=== PATIENT | female | born 1980 | race Caucasian/White ===

== ENCOUNTER 2017-11-24 08:06 | Emergency (ER) | payer OTHER ==
[~2017-11-24] VITALS: Ht 162.6 cm; Wt 98.9 kg
[~2017-11-24 08:06] MED LIST: ACEDIPPM; ACET500 PO; ALBU90OI INH; ALBU90OI6 INH; ALPR1; ALPR1 PO; AMOCLA875 PO; AMOX500; AMOX500 PO; AMOX875 PO; ATOR10 PO; AZIT250 PO; BENTYL10 MG PO; BENZ100A PO; BUPR150ER; BUSP10 PO; BUSP5; Bactrim 400-801 EACH PO; Bactrim Ds Tab1 EACH PO; Bupropion Xl150 MG PO; CEPH500 PO; CETI5 PO; CIPR100 PO; CIPR500 PO; CIPRO500 MG PO; CLON1; CLON1 PO; CODACE30; CODACE30 PO; CRUTCH2 USE; CRUTCH3 USE; CRUTCH4 USE; CYCL10 PO; DIAZ10; DIAZ10 PO; DIAZ2 PO; DIAZ5; DIAZ5 PO; DICL75ER; DIPH50 PO; DIVA125EC; DIVA500EC; DOXE10 PO; DOXY100; DULO30 PO; DULO60; DULO60 PO; ESCI10; ESCI20; ESTR2 PO; Excedrin Extra1 EACH PO; FENT50TP; FLUSAL1005 IH; FLUSAL1005 INH; FLUSAL2505; FLUT.05NI; FORFIVO XL450 MG; FORFIVO XL450 MG PO; FURO20; FURO20 PO; Flagyl500 MG PO; GABA800 PO; HYDACE5; HYDACE5 PO; HYDMOR2; HYDMOR4 PO; IBUP400; IBUP400 PO; IBUP800 PO; LAMO100 PO; LAMO25 PO; LAMO50 PO; LEVSOD150 PO; LIOT5 PO; LITH300C PO; LORA.5; LORA1 PO; LORA2; LORA2 PO; MEDICAL MARIJUANA; MELA3; META800 PO; METF500; METH40; METO25ER PO; METPHE20 PO; METPHE20CR PO; MODA200 PO; MULVITA; MULVITMINE; Mucinex1200 MG PO; NAPR375 PO; NAPR500 PO; NAPR550 PO; Nasonex17 GM; Norco 5-325 Ta1 EACH PO; OMEP20ER PO; OXYACE5T; OXYACE5T PO; OXYC10TA19 PO; OXYC15ER PO; OXYC30 PO; OXYC30ER PO; OXYC5 PO; PANT40 PO; PENVK500 PO; PHENA200 PO; PRAZ1; PRAZ1 PO; PRAZ2 PO; PRED20 PO; PREG200 PO; PROACE100 PO; PROCODE120 PO; PROM25; PROM25 PO; PSEU120ER PO; Prilosec20 MG PO; QUET100; QUET200 PO; RANI150 PO; RXCYCL10 PO; RXHYDACE PO; RXLORA1 PO; RXOXYACE PO; RXPHEN200 PO; RXPROACE PO; SERT100 PO; SUCR1 PO; SULTRIDS PO; SYNTHROID25 MCG PO; THYROLAR PO; TIOT18; TOPI100 PO; TOPI25 PO; TRAM50 PO; TRAZ100; TRAZ50; UNISOM; Ultram50 MG PO; VENL75ER; Veetids 500500 MG PO; Zantac150 MG PO; Zofran8 MG PO; [UNRECOGNIZED DRUG - REMARK]
[2017-11-24] MEDS ORDERED: Ultram50 MG PO (10:25)
== END 2017-11-24 10:45 | disposition home or self-care (01) ==
LOC: ER 08:06
DX: S83.92XA Sprain of unspecified site of left knee, initial encounter (principal); S83.91XA Sprain of unspecified site of right knee, initial encounter; Z87.891 Personal history of nicotine dependence; Z88.8 Allergy status to other drugs, medicaments and biological substances; Z79.899 Other long term (current) drug therapy; X58.XXXA Exposure to other specified factors, initial encounter; Y93.02 Activity, running; Y93.64 Activity, baseball
CPT/HCPCS: 29505; 73562-RT; 99283-25

== ENCOUNTER 2019-02-15 09:19 | Emergency (ER) | payer OTHER ==
[~2019-02-15] VITALS: Ht 162.6 cm; Wt 101.2 kg
[2019-02-15 10:21] LABS: BASOPHILS ABSOLUTE AUTO 0.04 K/mm3 (0.00-0.23); BASOPHILS PERCENT AUTO 1 % (0-2); EOSINOPHILS ABSOLUTE AUTO 0.76 K/mm3 (0.00-0.68); EOSINOPHILS PERCENT AUTO 11 % (0-6); Hematocrit 37.9 % (33.0-51.0); Hemoglobin 12.2 g/dL (11.5-16.0); IMMATURE GRAN ABSOLUTE AUTO 0.02 K/mm3 (0.00-0.10); IMMATURE GRAN PERCENT AUTO 0 % (0-1); LYMPHOCYTES ABSOLUTE AUTO 2.33 K/mm3 (0.84-5.20); LYMPHOCYTES PERCENT AUTO 32 % (21-46); MONOCYTES ABSOLUTE AUTO 0.59 K/mm3 (0.16-1.47); MONOCYTES PERCENT AUTO 8 % (4-13); Mean Corpuscular HGB Conc 32.2 g/dL (31.5-36.5); Mean Corpuscular Volume 93 fL (80-100); Mean Platelet Volume 9.4 fL (9.1-12.4); NEUTROPHILS ABSOLUTE AUTO 3.47 K/mm3 (1.96-9.15); NEUTROPHILS PERCENT AUTO 48 % (41-73); Platelet Count 303 K/mm3 (150-400); RDW Coefficient Variation 14.3 % (11.7-14.2); RDW Standard Deviation 49.2 fL (35.1-46.3); Red Blood Cell Count 4.07 M/mm3 (3.80-5.20); White Blood Cell Count 7.21 K/mm3 (4.00-11.30)
[2019-02-15 10:45] LABS: Source, Urine Clean Catch
[2019-02-15 10:47] LABS: Alanine Aminotransfer (ALT/SGP 22 U/L (12-78); Albumin, Blood 3.5 g/dL (3.4-5.0); Albumin/Globulin Ratio 1.1 (0.8-1.8); Alk Phos 59 U/L (50-136); Anion Gap 7 mmol/L (6-16); Aspartate Aminotrans (AST/SGOT 18 U/L (12-37); Bilirubin, Total 0.2 mg/dL (0.1-1.0); Blood Urea Nitrogen 17 mg/dL (8-24); Bun/Creatinine Ratio 17.4 (12.0-20.0); CO2, Blood 22 mmol/L (21-32); Calcium, Blood 8.5 mg/dL (8.5-10.1); Chloride, Blood 114 mmol/L (98-108); Creatinine, Blood 0.98 mg/dL (0.40-1.00); Globulin, Blood 3.3 g/dL (2.2-4.0); Glomerular Filtration Rate >60 (60-); Glucose, Blood 115 mg/dL (70-99); Potassium, Blood 3.7 mmol/L (3.5-5.5); Sodium, Blood 143 mmol/L (136-145); Total Protein, Blood 6.8 g/dL (6.4-8.2)
[2019-02-15 10:52] LABS: Bilirubin, Urine Neg (Neg); Blood, Urine Neg (Neg); Glucose Qualitative, Urine Neg (Neg); Ketones, Urine Neg (Neg); Leukocyte Esterase, Urine 1+ (Neg); Nitrite, Urine Neg (Neg); Protein, Urine Neg (Neg); Specific Gravity, Urine 1.025 (1.003-1.022); Urobilinogen, Urine NORM (Normal)
[2019-02-15 11:05] LABS: Appearance, Urine Clear (Clear); Color, Urine Yellow (P-Yellow)
[2019-02-15 11:07] LABS: Bacteria Few /hpf; Red Blood Cells, Urine Not Seen /hpf (0-2); Squamous Epithelial Cells Mod /hpf (Few); White Blood Cells, Urine 0-2 /hpf (0-5)
[2019-02-15] MEDS ORDERED: Miralax17 GM PO (15:35)
[2019-02-15] MEDS ORDERED: BELPTAB PO (15:36)
== END 2019-02-15 15:46 | disposition home or self-care (01) ==
LOC: ER 09:19
PROVIDERS: Emergency Medicine
DX: K92.1 Melena (principal); Z87.891 Personal history of nicotine dependence; Z88.5 Allergy status to narcotic agent; Z88.8 Allergy status to other drugs, medicaments and biological substances; Z79.899 Other long term (current) drug therapy; Z79.891 Long term (current) use of opiate analgesic
CPT/HCPCS: 36415; 74177; 80053; 81001; 83690; 85025; 87086; 96361; 96372-59; 96374-59; 99284-25; J0500; J1885; J7120; Q9967

== ENCOUNTER 2019-06-12 09:37 | Emergency (ER) | payer OTHER ==
[~2019-06-12] VITALS: Ht 162.6 cm; Wt 100.7 kg
[~2019-06-12 09:37] MED LIST changes: +BELPTAB PO; +Miralax17 GM PO
[2019-06-12] MEDS ORDERED: AMOC200S75 PO (10:06)
[2019-06-12] MEDS ORDERED: Flonase 0.05% N16 GM (10:06)
[2019-06-12 10:26] LABS: Source, Urine Clean Catch
[2019-06-12 10:34] LABS: Bilirubin, Urine Neg (Neg); Blood, Urine Neg (Neg); Glucose Qualitative, Urine Neg (Neg); Ketones, Urine Neg (Neg); Leukocyte Esterase, Urine Neg (Neg); Nitrite, Urine Neg (Neg); Protein, Urine Neg (Neg); Specific Gravity, Urine 1.015 (1.003-1.022); Urobilinogen, Urine NORM (Normal)
[2019-06-12 10:36] LABS: Appearance, Urine Clear (Clear); Color, Urine Yellow (P-Yellow)
[2019-06-12 10:46] LABS: U Amphetamine Screen Not Detected; U Barbituate Screen Not Detected; U Benzodiazapine Screen Not Detected; U Buprenorphine Screen Not Detected; U Cocaine Screen Not Detected; U Methadone Screen Not Detected; U Methamphetamine Screen Not Detected; U Opiates Screen Not Detected; U Oxycodone Screen Not Detected; U Phencyclidine Screen Not Detected; U Propoxyphene Screen Not Detected
[2019-06-12 11:06] LABS: BASOPHILS ABSOLUTE AUTO 0.06 K/mm3 (0.00-0.23); BASOPHILS PERCENT AUTO 1 % (0-2); EOSINOPHILS ABSOLUTE AUTO 0.52 K/mm3 (0.00-0.68); EOSINOPHILS PERCENT AUTO 9 % (0-6); Hematocrit 39.5 % (33.0-51.0); Hemoglobin 12.4 g/dL (11.5-16.0); IMMATURE GRAN PERCENT AUTO 0 % (0-1); LYMPHOCYTES PERCENT AUTO 36 % (21-46); MONOCYTES ABSOLUTE AUTO 0.44 K/mm3 (0.16-1.47); MONOCYTES PERCENT AUTO 8 % (4-13); Mean Corpuscular HGB 28.3 pg (26.0-34.0); Mean Corpuscular HGB Conc 31.4 g/dL (31.5-36.5); Mean Corpuscular Volume 90 fL (80-100); Mean Platelet Volume 9.8 fL (9.1-12.4); NEUTROPHILS ABSOLUTE AUTO 2.69 K/mm3 (1.96-9.15); NEUTROPHILS PERCENT AUTO 46 % (41-73); Platelet Count 320 K/mm3 (150-400); RDW Standard Deviation 50.3 fL (35.1-46.3); Red Blood Cell Count 4.38 M/mm3 (3.80-5.20); White Blood Cell Count 5.81 K/mm3 (4.00-11.30)
[2019-06-12 11:27] LABS: Alanine Aminotransfer (ALT/SGP 25 U/L (12-78); Albumin/Globulin Ratio 1.2 (0.8-1.8); Alk Phos 56 U/L (50-136); Anion Gap 7 mmol/L (6-16); Aspartate Aminotrans (AST/SGOT 12 U/L (12-37); Bilirubin, Total 0.4 mg/dL (0.1-1.0); Blood Urea Nitrogen 18 mg/dL (8-24); CO2, Blood 21 mmol/L (21-32); Calcium, Blood 8.8 mg/dL (8.5-10.1); Chloride, Blood 113 mmol/L (98-108); Creatinine, Blood 1.06 mg/dL (0.40-1.00); Globulin, Blood 3.4 g/dL (2.2-4.0); Glomerular Filtration Rate >60 (60-); Glucose, Blood 93 mg/dL (70-99); Potassium, Blood 4.4 mmol/L (3.5-5.5); Sodium, Blood 141 mmol/L (136-145); Total Protein, Blood 7.4 g/dL (6.4-8.2)
[2019-06-12] MEDS ORDERED: BUPROPION HCL200 M1 PO (11:40)
[2019-06-12] MEDS ORDERED: SYNTHROID75 MCG PO (11:41)
[2019-06-12] MEDS ORDERED: QUETIAPINE FUM100 MG PO (11:42)
[2019-06-12] MEDS ORDERED: LAMOTRIGINE100 M1 PO (11:42)
[2019-06-12] MEDS ORDERED: ESTRADIOL1 M1 PO (11:43)
[2019-06-12] MEDS ORDERED: PREGABALIN50 MG PO (11:43)
[2019-06-12 11:55] LABS: U Cannabinoids Screen Not Detected
== END 2019-06-12 12:28 | disposition home or self-care (01) ==
LOC: ER 09:37
PROVIDERS: Emergency Medicine
DX: R25.1 Tremor, unspecified (principal); Z88.6 Allergy status to analgesic agent; Z88.5 Allergy status to narcotic agent; Z79.899 Other long term (current) drug therapy; Z87.891 Personal history of nicotine dependence
CPT/HCPCS: 36415; 80053; 81003; 81025; 85025; 96360; 99284-25; J7030

== ENCOUNTER → 2021-01-04 | Outpatient (CLI) | payer OTHER ==
[~2021-01-04] MED LIST changes: +AMOC200S75 PO; +BUPROPION HCL200 M1 PO; +ESTRADIOL1 M1 PO; +Flonase 0.05% N16 GM; +LAMOTRIGINE100 M1 PO; +PREGABALIN50 MG PO; +QUETIAPINE FUM100 MG PO; +SYNTHROID75 MCG PO
[2021-01-07 09:57] LABS: Stool Occult Bld Immuno 1 Positive (NEGATIVE)
== END | disposition home or self-care (01) ==
LOC: LAB SHORT 12:20 → LAB 12:20
PROVIDERS: Student in an Organized Health Care Education/Training Program
DX: K92.1 Melena (principal)
CPT/HCPCS: 82274

== ENCOUNTER 2021-04-13 06:44 | Day surgery (SDC) | payer OTHER ==
[~2021-04-13] VITALS: Ht 162.6 cm; Wt 103.9 kg
[~2021-04-13 06:44] MED LIST changes: +ATOR20; +FAMO20; +LAMO100; +THERA-D2000 UNIT
== END 2021-04-13 09:15 | disposition home or self-care (01) ==
LOC: ORSCSDS 06:44
PROVIDERS: Student in an Organized Health Care Education/Training Program
PROC: 0DBL8ZX Excision of Transverse Colon, Via Natural or Artificial Opening Endoscopic, Diagnostic (ICD-10-PCS; principal; 2021-04-13 08:00)
PROC: 0DB78ZX Excision of Stomach, Pylorus, Via Natural or Artificial Opening Endoscopic, Diagnostic (ICD-10-PCS; principal; 2021-04-13 08:00)
PROC: 0DB58ZX Excision of Esophagus, Via Natural or Artificial Opening Endoscopic, Diagnostic (ICD-10-PCS; principal; 2021-04-13 08:00)
DX: D50.9 Iron deficiency anemia, unspecified (principal); K92.1 Melena; R13.10 Dysphagia, unspecified; K21.9 Gastro-esophageal reflux disease without esophagitis; K29.70 Gastritis, unspecified, without bleeding; D12.3 Benign neoplasm of transverse colon; K64.8 Other hemorrhoids; G47.33 Obstructive sleep apnea (adult) (pediatric); F17.210 Nicotine dependence, cigarettes, uncomplicated; J45.909 Unspecified asthma, uncomplicated; E03.9 Hypothyroidism, unspecified; M79.7 Fibromyalgia; E66.01 Morbid (severe) obesity due to excess calories; Z68.39 Body mass index [BMI] 39.0-39.9, adult; Z79.899 Other long term (current) drug therapy
CPT/HCPCS: 88305; 88342; J2250; J2704; J7120

== ENCOUNTER → 2023-03-28 | Outpatient (CLI) | payer OTHER ==
[2023-03-28 12:15] LABS: Adenovirus Not Detected (NOT DETECT); Bordetella pertussis Not Detected (NOT DETECT); Chlamydophila pneumoniae Not Detected (NOT DETECT); Coronavirus 229E Not Detected (NOT DETECT); Coronavirus HKU1 Not Detected (NOT DETECT); Coronavirus NL63 Not Detected (NOT DETECT); Coronavirus OC43 Not Detected (NOT DETECT); Human Metapneumovirus Not Detected (NOT DETECT); Human Rhinovirus/Enterovirus Detected (NOT DETECT); Influenza A/2009-H1 Not Detected (NOT DETECT); Influenza A/H1 Not Detected (NOT DETECT); Influenza A/H3 Not Detected (NOT DETECT); Influenza B Not Detected (NOT DETECT); Mycoplasma pneumoniae Not Detected (NOT DETECT); Parainfluenza Virus 1 Not Detected (NOT DETECT); Parainfluenza Virus 2 Not Detected (NOT DETECT); Parainfluenza Virus 3 Not Detected (NOT DETECT); Parainfluenza Virus 4 Not Detected (NOT DETECT); Respiratory Syncytial Virus Not Detected (NOT DETECT); SARS-Cov-2 (COVID-19), BioFire Not Detected (NOT DETECT)
== END ==
LOC: LAB SHORT 10:13 → LAB 10:13
PROVIDERS: Nurse Practitioner
DX: R05.9 Cough, unspecified (principal)
CPT/HCPCS: 0202U

== ENCOUNTER 2023-12-12 09:33 | Day surgery (SDC) | payer OTHER ==
[2023-12-12] VITALS (15 sets, daily range): BP systolic 98–131; BP diastolic 58–94
[~2023-12-12] VITALS: Ht 165.1 cm; Wt 84.7 kg
[~2023-12-12 09:33] MED LIST changes: -ATOR20; +ATOR20 PO; +CYMBALTA30 M2 PO; +DOTTI1 EA19 TOP; +HYDROCODONE-AC1 EA19 PO; +IRON PO; +Percocet 5-3251 EACH PO; -THERA-D2000 UNIT; +THERA-D2000 UNIT PO; +Zofran4 MG PO
[2023-12-12] MEDS ORDERED: Acetaminophen 500 MG Tab PO SCH ×2 (09:45→16:00)
[2023-12-12] MEDS ORDERED: Chlorhexidine Mouth Care 15 ML UDC MT SCH (09:45)
[2023-12-12] MEDS ORDERED: Lactated Ringer's 1,000 ML IV SCH ×2 (09:45→10:40)
[2023-12-12] MEDS ORDERED: CeFAZolin Sodium 2,000 MG in NS 100 ML IV SCH ×2 (09:45→20:00)
[2023-12-12] MEDS ORDERED: Ropivacaine 0.5% HCl/Pf 123.125 MG,EPINEPHrine HCL 0.25 MG,Ketorolac Tromethamine 15 MG... INFIL SCH (09:45)
[2023-12-12] MEDS ORDERED: OxyCODONE HCL 10 MG TABCR PO SCH (09:45)
[2023-12-12] MEDS ORDERED: Tranexamic Acid 100 ML IV SCH (09:45)
[2023-12-12] MEDS ORDERED: MUPIROCIN1 G4 TOP (10:15)
--- NOTE | 2023-12-12 10:17 | NUR ---
PATIENT TRANSFERED TO DAY SURGERY VIA W/C ACCOMPANIED BY "". PATIENT TRANSFERED FROM W/C TO [facility] AND DRESSED IN GOWN INDEPENDANTLY.
--- NOTE | 2023-12-12 10:18 | NUR ---
PATIENT REPORTS HAVING LAVH. NO HCG INDICATED.
[2023-12-12] MEDS ORDERED: Ondansetron 4 MG TAB PO PRN (10:35)
[2023-12-12] MEDS ORDERED: Metoclopramide HCl 5MG / ML 2ML Vial IV PRN (10:40)
[2023-12-12] MEDS ORDERED: Magnesium Hydroxide Conc 10 ML UDC PO PRN (10:40)
[2023-12-12] MEDS ORDERED: Ondansetron HCl 2 MG / ML 2ML Vial IV PRN (10:40)
[2023-12-12] MEDS ORDERED: DiphenhydrAMINE HCL 25 MG Cap PO PRN (10:45)
[2023-12-12] MEDS ORDERED: OxyCODONE HCL 5 MG TAB PO PRN ×2 (10:45)
[2023-12-12] MEDS ORDERED: HYDROmorphone HCl/Pf 1MG SYR IV PRN (10:45)
[2023-12-12] MEDS ORDERED: Promethazine HCl 25 MG Tab PO PRN (10:45)
[2023-12-12] MEDS ORDERED: Bisacodyl 10 MG Supp PR PRN (10:50)
[2023-12-12] MEDS ORDERED: Midazolam HCl 1MG / ML 2ML Vial ONE (11:48)
[2023-12-12] MEDS ORDERED: FentaNYL Citrate 50 MCG/ML 2 ML Injection ONE (11:48)
[2023-12-12] MEDS ORDERED: propofoL 60 ML IV ONE (11:48)
[2023-12-12] MEDS ORDERED: Bupivacaine 0.5% HCl 5 MG/ML 30MLVIAL ONE (11:49)
--- NOTE | 2023-12-12 11:53 | NUR ---
1151-PATIENT EMPTIED BLADDER FOR SURGERY.
[2023-12-12] MEDS ORDERED: Glycopyrrolate 0.2 MG/ML 5ML VIAL ONE (12:03)
[2023-12-12] MEDS ORDERED: Ondansetron HCl 2 MG / ML 2ML Vial ONE (13:18)
[2023-12-12] MEDS ORDERED: Dexamethasone Sod Phos 10 MG/ML 1ML VIAL ONE (13:18)
[2023-12-12] MEDS ORDERED: Pregabalin 50 MG Capsule PO SCH (14:00)
[2023-12-12] MEDS ORDERED: Methylphenidate HCL 10 MG TAB PO SCH (14:00)
[2023-12-12] MEDS ORDERED: Estradiol 0.025 MG/24 Patch TOP SCH (14:42)
--- NOTE | 2023-12-12 14:57 | NUR ---
PACU TO 215 PT ARRIVED TO HER ROOM 215 FROM PACU ESCORTED BY 2 RN'S, A/O X4 AND RESPONDS TO QUESTIONS WHEN ASKED, NOT ABLE TO WIGGLE HER TOES YET AND REPORTS SOME NUMBNESS IN HER LEGS STILL. DISCUSSED PLAN OF CARE WITH HER FOR THE DAY, AQUACELL TO R KNEE C/D/I AND WRAPPED WITH AN KATIA WRAP. POST OP VITAL STARTED
--- NOTE | 2023-12-12 19:17 | NUR ---
SHIFT SUMMARY POD0 R TKA, A/OX4, VSS, TOLERATING PO, ABLE TO WIGGLE TOES AND MOVE BLE, NO T HERAPY TODAY SHE WAS NOT READY SENSATION CHA WHEN THEY CAME AROUND, PAIN MANAGED PER EMAR. NO ACUTE EVENTS THIS SHIFT, CALL LIGHT IN REACH.
[2023-12-12] MEDS ORDERED: BuPROPion HCl SR 100 MG TabCR PO SCH (21:00)
[2023-12-12] MEDS ORDERED: DULoxetine HCL 30 MG Cap DR PO SCH (21:00)
[2023-12-12] MEDS ORDERED: Topiramate 25 MG Tab PO SCH (21:00)
[2023-12-12] MEDS ORDERED: Docusate Sodium 100 MG Cap PO SCH (21:00)
[2023-12-12] MEDS ORDERED: Apixaban 5 MG Tab PO SCH (21:00)
[2023-12-12] MEDS ORDERED: Atorvastatin 10 MG Tab PO SCH (21:00)
[2023-12-12] MEDS ORDERED: QUEtiapine Fumarate 25 MG Tab PO SCH (21:00)
[2023-12-13 04:57] LABS: BASOPHILS ABSOLUTE AUTO 0.02 K/mm3 (0.00-0.23); BASOPHILS PERCENT AUTO 0 % (0-2); EOSINOPHILS PERCENT AUTO 0 % (0-6); Hematocrit 37.2 % (33.0-51.0); Hemoglobin 12.5 g/dL (11.5-16.0); IMMATURE GRAN ABSOLUTE AUTO 0.04 K/mm3 (0.00-0.10); IMMATURE GRAN PERCENT AUTO 0 % (0-1); LYMPHOCYTES ABSOLUTE AUTO 1.37 K/mm3 (0.84-5.20); LYMPHOCYTES PERCENT AUTO 11 % (21-46); MONOCYTES PERCENT AUTO 6 % (4-13); Mean Corpuscular HGB 31.6 pg (26.0-34.0); Mean Corpuscular HGB Conc 33.6 g/dL (31.5-36.5); Mean Corpuscular Volume 94 fL (80-100); NEUTROPHILS ABSOLUTE AUTO 10.47 K/mm3 (1.96-9.15); NEUTROPHILS PERCENT AUTO 82 % (41-73); Platelet Count 247 K/mm3 (150-400); RDW Coefficient Variation 12.6 % (11.7-14.2); RDW Standard Deviation 43.6 fL (35.1-46.3); Red Blood Cell Count 3.96 M/mm3 (3.80-5.20)
--- NOTE | 2023-12-13 05:05 | NUR ---
SUMMARY- PT HAS BEEN PAINFUL FREQUENTLY THROUGHOUT SHIFT. PT REPORTS DISCOMFORT TO RIGHT KNEE AND BLADDER. PT STATES SHE HAS SUBSTANTIAL BLADDER ISSUES AND IS NOT UNCOMMON TO HAVE DIFFICULTY VOIDING. PT STATES SHE IS SUPPOSED TO HAVE SX ON BLADDER SOON. PT HAS BEEN UNABLE TO VOID. PT HAS BEEN STRIGHT CATH WITH 1000 ML OUT. PT HAS NEEDED BOTH PO AND IV PAIN MEDS. PT REPORTS SOME RELIEF WITH MEDICATION. PT CURRENTLY RESTING IN NO DISTRESS. ICE PACK COLD AND IN PLACE. KATIA WRAP C/D/I. CALL LIGHT IN REACH.
[2023-12-13 05:17] VITALS: BP 130/74
[2023-12-13] MEDS ORDERED: Pantoprazole Sodium 40 MG Tab PO SCH (06:00)
[2023-12-13] MEDS ORDERED: Levothyroxine Sodium 0.075 MG Tab PO SCH (06:00)
[2023-12-13 06:29] LABS: Calcium, Blood 8.9 mg/dL (8.5-10.1); Creatinine, Blood 0.55 mg/dL (0.40-1.00)
[2023-12-13 07:29] VITALS: BP 137/90
[2023-12-13] MEDS ORDERED: Cholecalciferol 1000 Unit Tablet (=25MCG) PO SCH (09:00)
[2023-12-13] MEDS ORDERED: Ferrous Sulfate 325 MG Tab PO SCH (09:00)
[2023-12-13] MEDS ORDERED: Liothyronine Sodium 5 MCG Tab PO SCH (09:00)
[2023-12-13 10:46] VITALS: BP 143/81
--- NOTE | 2023-12-13 12:30 | NUR ---
PT WORKED WITH PHYSICAL THERAPY AND DID WELL. ABLE TO VOID 250 WITH NO RESIDUAL ON BLADDER SCAN. PER DR. SEVERO MATOS FOR PT TO OK.
--- NOTE | 2023-12-13 12:31 | NUR ---
DISCHARGE: PACKET PRINTED AND PT EDUCATED. IV DC'D WNL BY URSZULA ASENCIO. PT GIVEN EXTRA AQUACELS FOR HOME AND PAIN SCRIPT. LEFT UNIT AT ABOUT 1040 IN WHEELCHAIR WITH THIS RN.
== END 2023-12-13 11:30 | disposition home or self-care (01) ==
LOC: ORSCMMR 09:33 → ORD 11:00 → SURS 14:20 → ORSCMMR 12-13 11:30 → SURS 12-13 11:30
PROVIDERS: Orthopaedic Surgery
PROC: 0SRC0JA Replacement of Right Knee Joint with Synthetic Substitute, Uncemented, Open Approach (ICD-10-PCS; principal; 2023-12-12 11:00)
DX: M17.11 Unilateral primary osteoarthritis, right knee (principal); E78.5 Hyperlipidemia, unspecified; E03.9 Hypothyroidism, unspecified; F41.9 Anxiety disorder, unspecified; F32.A Depression, unspecified; Z79.899 Other long term (current) drug therapy; Z87.891 Personal history of nicotine dependence
CPT/HCPCS: 36415; 73560-RT; 80048; 85025; 97110; 97161; 97530; A9270; C1776; J0171; J0690; J0735; J1100; J1170; J1885; J2250; J2405; J2704; J2795; J3010; J7120

== ENCOUNTER 2024-06-11 20:20 | Emergency (ER) | payer OTHER ==
[~2024-06-11] VITALS: Ht 165.1 cm; Wt 81.7 kg
[~2024-06-11 20:20] MED LIST changes: +MUPIROCIN1 G4 TOP
[2024-06-11 20:39] VITALS: BP 139/86
== END 2024-06-11 22:55 | disposition home or self-care (01) ==
LOC: ER 20:20
DX: S61.411A Laceration without foreign body of right hand, initial encounter (principal); Z88.5 Allergy status to narcotic agent; Z88.6 Allergy status to analgesic agent; Z88.8 Allergy status to other drugs, medicaments and biological substances; Z79.890 Hormone replacement therapy; Z79.899 Other long term (current) drug therapy; Z87.891 Personal history of nicotine dependence; W26.8XXA Contact with other sharp object(s), not elsewhere classified, initial encounter
CPT/HCPCS: 12001; 99282-25

== ENCOUNTER 2024-09-05 11:25 | Emergency (ER) | payer OTHER ==
[~2024-09-05] VITALS: Ht 165.1 cm; Wt 85.7 kg
[2024-09-05] MEDS ORDERED: NS 1,000 ML IV SCH ×2 (11:35→12:05)
[2024-09-05] MEDS ORDERED: Ondansetron HCl 2 MG / ML 2ML Vial IV ONE ×2 (11:35→12:10)
[2024-09-05 11:58] LABS: BASOPHILS ABSOLUTE AUTO 0.05 K/mm3 (0.00-0.23); BASOPHILS PERCENT AUTO 0 % (0-2); EOSINOPHILS ABSOLUTE AUTO 0.48 K/mm3 (0.00-0.68); EOSINOPHILS PERCENT AUTO 4 % (0-6); Hematocrit 43.3 % (33.0-51.0); Hemoglobin 14.8 g/dL (11.5-16.0); IMMATURE GRAN ABSOLUTE AUTO 0.05 K/mm3 (0.00-0.10); IMMATURE GRAN PERCENT AUTO 0 % (0-1); LYMPHOCYTES ABSOLUTE AUTO 2.53 K/mm3 (0.84-5.20); LYMPHOCYTES PERCENT AUTO 19 % (21-46); MONOCYTES ABSOLUTE AUTO 0.97 K/mm3 (0.16-1.47); MONOCYTES PERCENT AUTO 7 % (4-13); Mean Corpuscular HGB 32.3 pg (26.0-34.0); Mean Corpuscular HGB Conc 34.2 g/dL (31.5-36.5); Mean Corpuscular Volume 95 fL (80-100); Mean Platelet Volume 9.3 fL (9.1-12.4); NEUTROPHILS ABSOLUTE AUTO 9.08 K/mm3 (1.96-9.15); NEUTROPHILS PERCENT AUTO 69 % (41-73); Platelet Count 294 K/mm3 (150-400); RDW Coefficient Variation 12.6 % (11.7-14.2); RDW Standard Deviation 43.1 fL (35.1-46.3); Red Blood Cell Count 4.58 M/mm3 (3.80-5.20); White Blood Cell Count 13.16 K/mm3 (4.00-11.30)
[2024-09-05] MEDS ORDERED: Morphine Sulfate 4 MG/1 ML Injection IV ONE ×2 (12:05→14:50)
[2024-09-05 12:16] LABS: Albumin, Blood 4.1 g/dL (3.4-5.0); Albumin/Globulin Ratio 1.2 (0.8-1.8); Bilirubin, Total 0.3 mg/dL (0.1-1.0); Bun/Creatinine Ratio 32.5 (12.0-20.0); Calcium, Blood 9.3 mg/dL (8.5-10.1); Creatinine, Blood 0.86 mg/dL (0.40-1.00); Globulin, Blood 3.3 g/dL (2.2-4.0); Potassium, Blood 4.1 mmol/L (3.5-5.5); Total Protein, Blood 7.4 g/dL (6.4-8.2)
[2024-09-05 12:55] LABS: Source, Urine Clean Catch
[2024-09-05 13:04] LABS: Appearance, Urine Clear (Clear); Bilirubin, Urine Neg (Neg); Blood, Urine Neg (Neg); Color, Urine Yellow (P-Yellow); Glucose Qualitative, Urine Neg (Neg); Ketones, Urine Neg (Neg); Leukocyte Esterase, Urine Neg (Neg); Nitrite, Urine Neg (Neg); Protein, Urine Neg (Neg); Specific Gravity, Urine 1.025 (1.003-1.022); Urobilinogen, Urine NORM (Normal)
[2024-09-05] MEDS ORDERED: DICY20 PO (15:27)
[2024-09-05] MEDS ORDERED: ONDA4ODT MM (15:27)
[2024-09-05 15:41] VITALS: BP 113/87
== END 2024-09-05 15:42 | disposition home or self-care (01) ==
LOC: ER 11:25
PROVIDERS: Physician Assistant
DX: K52.9 Noninfective gastroenteritis and colitis, unspecified (principal); Z88.5 Allergy status to narcotic agent; Z88.8 Allergy status to other drugs, medicaments and biological substances; Z79.890 Hormone replacement therapy; Z79.899 Other long term (current) drug therapy; Z87.891 Personal history of nicotine dependence
CPT/HCPCS: 74177; 80053; 81003; 82272; 83690; 85025; 96374-59; 96375; 96376; 99284-25; J2270; J2405; J7030; Q9967

== ENCOUNTER 2024-09-07 16:45 | Emergency (ER) | payer OTHER ==
[~2024-09-07] VITALS: Ht 165.1 cm; Wt 83.9 kg
[~2024-09-07 16:45] MED LIST changes: +DICY20 PO; +ONDA4ODT MM
[2024-09-07 17:16] VITALS: BP 97/57
[2024-09-07] MEDS ORDERED: Diphth,Pertuss(Acell),Tet Vac 0.5 ML VIAL IM ONE (17:25)
[2024-09-07 17:57] LABS: BASOPHILS ABSOLUTE AUTO 0.04 K/mm3 (0.00-0.23); BASOPHILS PERCENT AUTO 1 % (0-2); EOSINOPHILS ABSOLUTE AUTO 0.51 K/mm3 (0.00-0.68); EOSINOPHILS PERCENT AUTO 6 % (0-6); Hematocrit 34.5 % (33.0-51.0); Hemoglobin 11.6 g/dL (11.5-16.0); IMMATURE GRAN ABSOLUTE AUTO 0.02 K/mm3 (0.00-0.10); IMMATURE GRAN PERCENT AUTO 0 % (0-1); LYMPHOCYTES ABSOLUTE AUTO 2.55 K/mm3 (0.84-5.20); LYMPHOCYTES PERCENT AUTO 30 % (21-46); MONOCYTES PERCENT AUTO 7 % (4-13); Mean Corpuscular HGB 32.3 pg (26.0-34.0); Mean Corpuscular HGB Conc 33.6 g/dL (31.5-36.5); Mean Corpuscular Volume 96 fL (80-100); Mean Platelet Volume 9.1 fL (9.1-12.4); NEUTROPHILS ABSOLUTE AUTO 4.81 K/mm3 (1.96-9.15); NEUTROPHILS PERCENT AUTO 56 % (41-73); Platelet Count 235 K/mm3 (150-400); RDW Coefficient Variation 12.4 % (11.7-14.2); RDW Standard Deviation 43.9 fL (35.1-46.3); Red Blood Cell Count 3.59 M/mm3 (3.80-5.20); White Blood Cell Count 8.53 K/mm3 (4.00-11.30)
[2024-09-07 18:17] LABS: Albumin, Blood 3.6 g/dL (3.4-5.0); Albumin/Globulin Ratio 1.2 (0.8-1.8); Bilirubin, Total 0.2 mg/dL (0.1-1.0); Bun/Creatinine Ratio 28.7 (12.0-20.0); Calcium, Blood 8.3 mg/dL (8.5-10.1); Creatinine, Blood 0.8 mg/dL (0.40-1.00); Globulin, Blood 2.9 g/dL (2.2-4.0); Potassium, Blood 3.7 mmol/L (3.5-5.5); Total Protein, Blood 6.5 g/dL (6.4-8.2)
== END 2024-09-07 19:35 | disposition home or self-care (01) ==
LOC: ER 16:45
PROVIDERS: Student in an Organized Health Care Education/Training Program
DX: M79.645 Pain in left finger(s) (principal); I80.8 Phlebitis and thrombophlebitis of other sites; Z87.891 Personal history of nicotine dependence; Z79.899 Other long term (current) drug therapy; Z88.5 Allergy status to narcotic agent; Z88.6 Allergy status to analgesic agent; Z88.8 Allergy status to other drugs, medicaments and biological substances
CPT/HCPCS: 73140; 80053; 85025; 90471; 90715; 99283-25

== ENCOUNTER 2025-02-19 02:32 | Day surgery (SDC) | payer BC, OTHER ==
[2025-02-19] MEDS ORDERED: Lidocaine HCl 4% Topical Soln 5 MLUDC ONE (13:37)
== END 2025-02-19 23:00 | disposition home or self-care (01) ==
LOC: WOUND 02:32
DX: T81.31XA Disruption of external operation (surgical) wound, not elsewhere classified, initial encounter (principal); J45.909 Unspecified asthma, uncomplicated; G47.30 Sleep apnea, unspecified; F17.210 Nicotine dependence, cigarettes, uncomplicated; Z88.5 Allergy status to narcotic agent; Z88.8 Allergy status to other drugs, medicaments and biological substances
CPT/HCPCS: A9270; G0463

== ENCOUNTER → 2025-02-19 | Outpatient (CLI) | payer BC, OTHER ==
[2025-02-19 17:45] LABS: BASOPHILS ABSOLUTE AUTO 0.07 K/mm3 (0.00-0.23); BASOPHILS PERCENT AUTO 1 % (0-2); EOSINOPHILS ABSOLUTE AUTO 0.14 K/mm3 (0.00-0.68); EOSINOPHILS PERCENT AUTO 2 % (0-6); Hematocrit 34.0 % (33.0-51.0); Hemoglobin 11.0 g/dL (11.5-16.0); IMMATURE GRAN ABSOLUTE AUTO 0.01 K/mm3 (0.00-0.10); IMMATURE GRAN PERCENT AUTO 0 % (0-1); LYMPHOCYTES ABSOLUTE AUTO 1.72 K/mm3 (0.84-5.20); LYMPHOCYTES PERCENT AUTO 25 % (21-46); MONOCYTES ABSOLUTE AUTO 0.54 K/mm3 (0.16-1.47); MONOCYTES PERCENT AUTO 8 % (4-13); Mean Corpuscular HGB Conc 32.4 g/dL (31.5-36.5); Mean Corpuscular Volume 95 fL (80-100); NEUTROPHILS ABSOLUTE AUTO 4.31 K/mm3 (1.96-9.15); NEUTROPHILS PERCENT AUTO 64 % (41-73); NRBC ABSOLUTE 0.00 K/mm3 (0.00-0.02); NRBC Auto 0.0 /100 WBC (0.0-0.2); Platelet Count 380 K/mm3 (150-400); RDW Coefficient Variation 12.3 % (11.7-14.2); RDW Standard Deviation 43.5 fL (35.1-46.3)
[2025-02-19 21:12] LABS: C-REACTIVE PROTEIN, EXT RANGE 1.78 mg/dL (0.000-0.300)
[2025-02-19 21:14] LABS: Alanine Aminotransfer (ALT/SGP 24.0 U/L (12-78); Albumin, Blood 3.2 g/dL (3.4-5.0); Albumin/Globulin Ratio 0.8 (0.8-1.8); Anion Gap 10.0 mmol/L (3-11); Aspartate Aminotrans (AST/SGOT 17.0 U/L (12-37); Bilirubin, Total 0.1 mg/dL (0.1-1.0); Blood Urea Nitrogen 20.0 mg/dL (8-24); CO2, Blood 24.0 mmol/L (21-32); Calcium, Blood 9.0 mg/dL (8.5-10.1); Chloride, Blood 107.0 mmol/L (98-108); Creatinine, Blood 0.79 mg/dL (0.40-1.00); Globulin, Blood 3.8 g/dL (2.2-4.0); Glucose, Blood 113.0 mg/dL (70-99); Potassium, Blood 3.9 mmol/L (3.5-5.5); Sodium, Blood 137.0 mmol/L (136-145); Total Protein, Blood 7.0 g/dL (6.4-8.2)
== END ==
LOC: LAB SHORT 10:50 → LAB 10:50
PROVIDERS: Internal Medicine Infectious Disease
DX: T81.49XA Infection following a procedure, other surgical site, initial encounter (principal)
CPT/HCPCS: 80053; 85025; 85651; 86140

== ENCOUNTER → 2025-03-03 | Outpatient (CLI) | payer BC, OTHER ==
[2025-03-03 17:56] LABS: BASOPHILS ABSOLUTE AUTO 0.04 K/mm3 (0.00-0.23); BASOPHILS PERCENT AUTO 1 % (0-2); EOSINOPHILS ABSOLUTE AUTO 0.21 K/mm3 (0.00-0.68); EOSINOPHILS PERCENT AUTO 4 % (0-6); Hematocrit 39.6 % (33.0-51.0); Hemoglobin 12.8 g/dL (11.5-16.0); IMMATURE GRAN ABSOLUTE AUTO 0.01 K/mm3 (0.00-0.10); IMMATURE GRAN PERCENT AUTO 0 % (0-1); LYMPHOCYTES ABSOLUTE AUTO 1.71 K/mm3 (0.84-5.20); LYMPHOCYTES PERCENT AUTO 31 % (21-46); MONOCYTES ABSOLUTE AUTO 0.53 K/mm3 (0.16-1.47); MONOCYTES PERCENT AUTO 10 % (4-13); Mean Corpuscular HGB Conc 32.3 g/dL (31.5-36.5); Mean Corpuscular Volume 94 fL (80-100); NEUTROPHILS ABSOLUTE AUTO 2.97 K/mm3 (1.96-9.15); NEUTROPHILS PERCENT AUTO 54 % (41-73); NRBC ABSOLUTE 0.00 K/mm3 (0.00-0.02); NRBC Auto 0.0 /100 WBC (0.0-0.2); Platelet Count 339 K/mm3 (150-400); RDW Coefficient Variation 12.5 % (11.7-14.2); RDW Standard Deviation 43.2 fL (35.1-46.3)
[2025-03-03 18:00] LABS: C-REACTIVE PROTEIN, EXT RANGE 0.316 mg/dL (0.000-0.300)
[2025-03-03 18:06] LABS: Alanine Aminotransfer (ALT/SGP 25.0 U/L (12-78); Albumin, Blood 3.6 g/dL (3.4-5.0); Albumin/Globulin Ratio 0.9 (0.8-1.8); Anion Gap 7.0 mmol/L (3-11); Aspartate Aminotrans (AST/SGOT 27.0 U/L (12-37); Bilirubin, Total 0.2 mg/dL (0.1-1.0); Blood Urea Nitrogen 17.0 mg/dL (8-24); CO2, Blood 23.0 mmol/L (21-32); Calcium, Blood 9.1 mg/dL (8.5-10.1); Chloride, Blood 110.0 mmol/L (98-108); Creatinine, Blood 0.61 mg/dL (0.40-1.00); Globulin, Blood 3.9 g/dL (2.2-4.0); Glucose, Blood 106.0 mg/dL (70-99); Potassium, Blood 4.0 mmol/L (3.5-5.5); Sodium, Blood 136.0 mmol/L (136-145); Total Protein, Blood 7.5 g/dL (6.4-8.2)
== END ==
LOC: LAB 17:29 → LAB SHORT 17:29
PROVIDERS: Internal Medicine Infectious Disease
DX: T81.49XA Infection following a procedure, other surgical site, initial encounter (principal)
CPT/HCPCS: 80053; 85025; 85651; 86140

== ENCOUNTER 2025-03-05 00:38 | Day surgery (SDC) | payer BC, OTHER ==
[2025-03-05] MEDS ORDERED: Lidocaine HCl 4% Topical Soln 5 MLUDC ONE (14:59)
== END 2025-03-05 23:00 | disposition home or self-care (01) ==
LOC: WOUND 00:38
DX: T81.31XA Disruption of external operation (surgical) wound, not elsewhere classified, initial encounter (principal)
CPT/HCPCS: A9270

== ENCOUNTER 2025-03-12 03:26 | Day surgery (SDC) | payer BC, OTHER ==
[2025-03-12] MEDS ORDERED: Lidocaine HCl 4% Topical Soln 5 MLUDC ONE (14:43)
== END 2025-03-12 23:00 | disposition home or self-care (01) ==
LOC: WOUND 03:26
DX: T81.31XA Disruption of external operation (surgical) wound, not elsewhere classified, initial encounter (principal)
CPT/HCPCS: A9270

== ENCOUNTER 2025-03-14 11:17 | Emergency (ER) | payer BC, OTHER ==
[~2025-03-14] VITALS: Ht 165.1 cm; Wt 99.8 kg
[2025-03-14 11:34] VITALS: BP 148/79
== END 2025-03-14 12:11 | disposition home or self-care (01) ==
LOC: ER 11:17
DX: Z45.2 Encounter for adjustment and management of vascular access device (principal); Z88.8 Allergy status to other drugs, medicaments and biological substances; Z88.5 Allergy status to narcotic agent; Z79.899 Other long term (current) drug therapy; Z87.891 Personal history of nicotine dependence
CPT/HCPCS: 99282

== ENCOUNTER → 2025-03-17 | Outpatient (CLI) | payer BC, OTHER ==
[2025-03-17 16:13] LABS: BASOPHILS ABSOLUTE AUTO 0.04 K/mm3 (0.00-0.23); BASOPHILS PERCENT AUTO 1 % (0-2); EOSINOPHILS ABSOLUTE AUTO 0.25 K/mm3 (0.00-0.68); EOSINOPHILS PERCENT AUTO 4 % (0-6); Hematocrit 34.4 % (33.0-51.0); Hemoglobin 11.0 g/dL (11.5-16.0); IMMATURE GRAN ABSOLUTE AUTO 0.02 K/mm3 (0.00-0.10); IMMATURE GRAN PERCENT AUTO 0 % (0-1); LYMPHOCYTES ABSOLUTE AUTO 1.97 K/mm3 (0.84-5.20); LYMPHOCYTES PERCENT AUTO 31 % (21-46); MONOCYTES ABSOLUTE AUTO 0.68 K/mm3 (0.16-1.47); MONOCYTES PERCENT AUTO 11 % (4-13); Mean Corpuscular HGB Conc 32.0 g/dL (31.5-36.5); Mean Corpuscular Volume 96 fL (80-100); NEUTROPHILS ABSOLUTE AUTO 3.48 K/mm3 (1.96-9.15); NEUTROPHILS PERCENT AUTO 54 % (41-73); NRBC ABSOLUTE 0.00 K/mm3 (0.00-0.02); NRBC Auto 0.0 /100 WBC (0.0-0.2); Platelet Count 261 K/mm3 (150-400); RDW Coefficient Variation 12.7 % (11.7-14.2); RDW Standard Deviation 44.6 fL (35.1-46.3)
[2025-03-17 21:15] LABS: Alanine Aminotransfer (ALT/SGP 30.0 U/L (12-78); Albumin, Blood 3.0 g/dL (3.4-5.0); Albumin/Globulin Ratio 0.9 (0.8-1.8); Anion Gap 9.0 mmol/L (3-11); Aspartate Aminotrans (AST/SGOT 43.0 U/L (12-37); Bilirubin, Total 0.1 mg/dL (0.1-1.0); Blood Urea Nitrogen 26.0 mg/dL (8-24); C-REACTIVE PROTEIN, EXT RANGE 1.28 mg/dL (0.000-0.300); CO2, Blood 24.0 mmol/L (21-32); Calcium, Blood 8.1 mg/dL (8.5-10.1); Chloride, Blood 109.0 mmol/L (98-108); Creatinine, Blood 0.6 mg/dL (0.40-1.00); Globulin, Blood 3.2 g/dL (2.2-4.0); Glucose, Blood 87.0 mg/dL (70-99); Potassium, Blood 3.9 mmol/L (3.5-5.5); Sodium, Blood 138.0 mmol/L (136-145); Total Protein, Blood 6.2 g/dL (6.4-8.2)
== END ==
LOC: LAB SHORT 14:49 → LAB 14:49
PROVIDERS: Family Medicine
DX: T81.41XA Infection following a procedure, superficial incisional surgical site, initial encounter (principal); B95.8 Unspecified staphylococcus as the cause of diseases classified elsewhere
CPT/HCPCS: 80053; 85025; 85651; 86140

== ENCOUNTER 2025-03-19 00:34 | Day surgery (SDC) | payer BC, OTHER ==
[2025-03-19] MEDS ORDERED: Lidocaine HCl 4% Topical Soln 5 MLUDC ONE (08:45)
== END 2025-03-19 23:00 | disposition home or self-care (01) ==
LOC: WOUND 00:34
DX: T81.31XA Disruption of external operation (surgical) wound, not elsewhere classified, initial encounter (principal)
CPT/HCPCS: A9270

== ENCOUNTER 2025-03-23 22:33 | Inpatient (IN) | payer BC, OTHER ==
[~2025-03-23] VITALS: Ht 157.5 cm; Wt 108.6 kg
[2025-03-23] MEDS ORDERED: Diazepam 5 MG / ML 2ML SYR IV ONE (23:05)
[2025-03-23 23:22] LABS: BASOPHILS ABSOLUTE AUTO 0.03 K/mm3 (0.00-0.23); BASOPHILS PERCENT AUTO 0 % (0-2); EOSINOPHILS ABSOLUTE AUTO 0.05 K/mm3 (0.00-0.68); EOSINOPHILS PERCENT AUTO 1 % (0-6); Hematocrit 27.6 % (33.0-51.0); Hemoglobin 9.0 g/dL (11.5-16.0); IMMATURE GRAN ABSOLUTE AUTO 0.04 K/mm3 (0.00-0.10); IMMATURE GRAN PERCENT AUTO 0 % (0-1); LYMPHOCYTES ABSOLUTE AUTO 0.75 K/mm3 (0.84-5.20); LYMPHOCYTES PERCENT AUTO 7 % (21-46); MONOCYTES ABSOLUTE AUTO 1.00 K/mm3 (0.16-1.47); MONOCYTES PERCENT AUTO 10 % (4-13); Mean Corpuscular HGB Conc 32.6 g/dL (31.5-36.5); Mean Corpuscular Volume 94 fL (80-100); NEUTROPHILS ABSOLUTE AUTO 8.53 K/mm3 (1.96-9.15); NEUTROPHILS PERCENT AUTO 82 % (41-73); NRBC ABSOLUTE 0.00 K/mm3 (0.00-0.02); NRBC Auto 0.0 /100 WBC (0.0-0.2); Platelet Count 306 K/mm3 (150-400); RDW Coefficient Variation 12.9 % (11.7-14.2); RDW Standard Deviation 44.3 fL (35.1-46.3)
[2025-03-23] MEDS ORDERED: Vancomycin (Pharmacy Consult) IV PRN (23:25)
[2025-03-23] MEDS ORDERED: Piperacillin/Tazobactam Sod 3.375 GM in NS 100 ML IV ONE (23:25)
[2025-03-23 23:38] LABS: Magnesium, Blood 1.9 mg/dL (1.6-2.4)
[2025-03-23 23:39] LABS: Alanine Aminotransfer (ALT/SGP 35.0 U/L (12-78); Albumin, Blood 3.2 g/dL (3.4-5.0); Albumin/Globulin Ratio 0.9 (0.8-1.8); Anion Gap 8.0 mmol/L (3-11); Aspartate Aminotrans (AST/SGOT 90.0 U/L (12-37); Bilirubin, Total 0.6 mg/dL (0.1-1.0); Blood Urea Nitrogen 20.0 mg/dL (8-24); CO2, Blood 24.0 mmol/L (21-32); Calcium, Blood 8.2 mg/dL (8.5-10.1); Chloride, Blood 104.0 mmol/L (98-108); Creatinine, Blood 0.89 mg/dL (0.40-1.00); Globulin, Blood 3.4 g/dL (2.2-4.0); Glucose, Blood 110.0 mg/dL (70-99); Potassium, Blood 3.3 mmol/L (3.5-5.5); Sodium, Blood 133.0 mmol/L (136-145); Total Protein, Blood 6.6 g/dL (6.4-8.2)
[2025-03-24] VITALS (9 sets, daily range): BP systolic 104–139; BP diastolic 59–95
[2025-03-24] MEDS ORDERED: FLU VACC TS2025-26(6MOS UP)/PF 45 MCG/0.5 ML SYRINGE IM SCH (00:25)
[2025-03-24] MEDS ORDERED: FentaNYL Citrate 50 MCG/ML 2 ML Injection IV PRN (01:10)
[2025-03-24 01:18] LABS: Prothrombin Time Results 11.8 Sec (9.7-11.5)
[2025-03-24] MEDS ORDERED: NS 250 ML IV PRN (01:30)
[2025-03-24 01:37] LABS: Influenza A, PCR NEGATIVE (NEGATIVE); Influenza B, PCR NEGATIVE (NEGATIVE); Resp Syncytial Virus, PCR NEGATIVE (NEGATIVE); SARS-Cov-2 (COVID-19) PCR, MMC NEGATIVE (NEGATIVE)
[2025-03-24 01:38] LABS: pH Blood Venous 7.32 (7.34-7.37)
[2025-03-24 02:09] LABS: Source, Urine Clean Catch
[2025-03-24 02:14] LABS: Bilirubin, Urine Neg (Neg); Glucose Qualitative, Urine Neg (Neg); Ketones, Urine 2+ (Neg); Leukocyte Esterase, Urine 1+ (Neg); Protein, Urine 1+ (Neg); Specific Gravity, Urine 1.015 (1.003-1.022); Urobilinogen, Urine NORM (Normal)
[2025-03-24 02:19] LABS: Color, Urine Yellow (P-Yellow)
[2025-03-24 02:22] LABS: Red Blood Cells, Urine Not Seen /hpf (0-2); White Blood Cells, Urine 0-2 /hpf (0-5)
[2025-03-24 02:51] LABS: U Amphetamine Screen DETECTED; U Barbiturate Screen Not Detected; U Benzodiazapine Screen DETECTED; U Buprenorphine Screen Not Detected; U Cannabinoids Screen Not Detected; U Cocaine Screen Not Detected; U Methadone Screen Not Detected; U Methamphetamine Screen Not Detected; U Opiates Screen DETECTED; U Oxycodone Screen DETECTED; U Phencyclidine Screen Not Detected
[2025-03-24 03:40] LABS: BASOPHILS ABSOLUTE AUTO 0.02 K/mm3 (0.00-0.23); BASOPHILS PERCENT AUTO 0 % (0-2); EOSINOPHILS ABSOLUTE AUTO 0.01 K/mm3 (0.00-0.68); EOSINOPHILS PERCENT AUTO 0 % (0-6); Hematocrit 24.1 % (33.0-51.0); Hemoglobin 7.7 g/dL (11.5-16.0); IMMATURE GRAN ABSOLUTE AUTO 0.07 K/mm3 (0.00-0.10); IMMATURE GRAN PERCENT AUTO 1 % (0-1); LYMPHOCYTES ABSOLUTE AUTO 1.18 K/mm3 (0.84-5.20); LYMPHOCYTES PERCENT AUTO 12 % (21-46); MONOCYTES ABSOLUTE AUTO 1.00 K/mm3 (0.16-1.47); MONOCYTES PERCENT AUTO 10 % (4-13); Mean Corpuscular HGB Conc 32.0 g/dL (31.5-36.5); Mean Corpuscular Volume 93 fL (80-100); NEUTROPHILS ABSOLUTE AUTO 7.61 K/mm3 (1.96-9.15); NEUTROPHILS PERCENT AUTO 77 % (41-73); NRBC ABSOLUTE 0.00 K/mm3 (0.00-0.02); NRBC Auto 0.0 /100 WBC (0.0-0.2); Platelet Count 243 K/mm3 (150-400); RDW Coefficient Variation 13.1 % (11.7-14.2); RDW Standard Deviation 44.2 fL (35.1-46.3)
[2025-03-24 03:58] LABS: Alanine Aminotransfer (ALT/SGP 36.0 U/L (12-78); Albumin, Blood 2.8 g/dL (3.4-5.0); Albumin/Globulin Ratio 0.8 (0.8-1.8); Anion Gap 11.0 mmol/L (3-11); Aspartate Aminotrans (AST/SGOT 98.0 U/L (12-37); Bilirubin, Total 0.7 mg/dL (0.1-1.0); Blood Urea Nitrogen 14.0 mg/dL (8-24); CO2, Blood 22.0 mmol/L (21-32); Calcium, Blood 7.9 mg/dL (8.5-10.1); Chloride, Blood 107.0 mmol/L (98-108); Creatinine, Blood 0.65 mg/dL (0.40-1.00); Globulin, Blood 3.5 g/dL (2.2-4.0); Glucose, Blood 109.0 mg/dL (70-99); Potassium, Blood 3.1 mmol/L (3.5-5.5); Sodium, Blood 137.0 mmol/L (136-145); Total Protein, Blood 6.3 g/dL (6.4-8.2)
[2025-03-24] MEDS ORDERED: Vancomycin (Pharmacy Consult) IV PRN (04:55)
[2025-03-24] MEDS ORDERED: Albuterol 2.5 MG/3 ML VIAL INH PRN (05:45)
--- NOTE | 2025-03-24 06:44 | NUR ---
Recieved pt at approx 0200 , VSS throughout shift , pt vocalizing discomfort in bed and pain asssociated with lower back . PRN medication given per EMR. Currently resting in bed with eyes close . Spouse at bed side between 0400 - 0530 . No compliants at this time. 3.3 potassium replaced with 40 mEq PO approx twenty minutes before follow up chemistry drawn .
[2025-03-24] MEDS ORDERED: Piperacillin/Tazobactam Sod 3.375 GM in NS 100 ML IV SCH (08:00)
--- NOTE | 2025-03-24 08:55 | NUR ---
ASSUMPTION OF CARE ASSUMED CARE OF PATIENT AT APPROX 0700. PATIENT A&OX4 AND ABLE TO MAKE NEEDS KNOWN. PATIENT IS ROLLING AROUND IN BED AT THIS TIME, BUT ABLE TO HOLD STILL WHEN ASKED AND COOPERATES WITH CARE. HR SINUS IN THE 70S. SP STABLE WITH MAPS >65. PATIENT ON 8L 02 VIA OXY MASK WITH SPO2 >95%. WOUND VAC TO THE BACK IN PLACE AND CONNECTED TO WOUND VAC CANISTER. PATIENT UP WITH ONE ASSIST TO BSC WITH 900 MLS OF YELLOW URINE OUT. BED IN LOWEST POSITION. CALL LIGHT IN REACH.
[2025-03-24] MEDS ORDERED: DEXTROAMPHETAMI10 M1 PO (10:25)
[2025-03-24] MEDS ORDERED: FAMO20 PO (10:41)
[2025-03-24] MEDS ORDERED: OXYC10TA19 PO (10:42)
[2025-03-24] MEDS ORDERED: LEVSOD100 PO (10:45)
[2025-03-24] MEDS ORDERED: BUPR150ER PO (10:46)
[2025-03-24] MEDS ORDERED: PREG150 PO (10:49)
--- NOTE | 2025-03-24 14:42 | NUR ---
PATIENT BELONGINGS PATIENTS WOUND VAC CHANGED FROM PERSONAL WOUND VAC TO HOSPITAL WOUND VAC. HOME WOUND VAC CANISTER WAS SENT HOME WITH PATIENTS , ESTUARDO.
--- NOTE | 2025-03-24 15:58 | NUR ---
GOT REPORT FROM ICU NURSE NEENA FOR PATIENT COMING TO ROOM 333
--- NOTE | 2025-03-24 16:13 | NUR ---
TRANSFER NOTE PATIENT TRANSFERED TO MEDICAL FLOOR ROOM 333. REPORT GIVEN TO ZAHEER WAYNE RN. PATIENT SENT WITH ALL BELONGINGS. NOTIFIED OF TRANSFER.
--- NOTE | 2025-03-24 17:43 | NUR ---
SHIFT SUMMARY PATIENT IS A&OX4, INDEPENDENT, CONTINENT, AND ON ROOM AIR. WOUND VAC DRAINING FROM L4-L5 WAS CHANGED OUT IN THE ICU BEFORE HER TRANSFER TO MED FLOOR TODAY. SHE IS PAINFUL, AND IS TREATED FOR PAIN PER EMAR. SHE CALLS APPROPRIATELY AND IS COOPERTIVE WITH CARE. BED IS LOW, CALL LIGHT IN REACH.
[2025-03-24] MEDS ORDERED: Arginine/Glutamine/Calcium Hmb 1 Packet PO SCH (21:00)
[2025-03-24] MEDS ORDERED: Lactobacil 2-S.Thermo-Bifido 1 1 Cap PO SCH (21:00)
[2025-03-25 04:49] VITALS: BP 133/78
--- NOTE | 2025-03-25 05:13 | NUR ---
SHIFT SUMMARY PATIENT IS ALERT AND ORIENETD. PATIENT HAS BEEN IND IN ROOM. PATIENT HAS HAD NO ACUTE EVENTS THIS SHIFT. WOUND VAC IN PLACE AND WAS CHANGED ON MONDAY PRIOR TO TX. PATIENT HAS COMPLAINED OF PAIN THIS SHIFT AND MEDICATED PER EMAR. PATIENT HAS HAD NO COMPLAINTS OF NAUSEA, SOB OR VOMITTING THIS SHIFT. ABX INFUSED ORDERED. BED IN LOCKED AND LOWEST POSITION. CALL LIGHT IN PLACE.
[2025-03-25] MEDS ORDERED: Morphine Sulfate 4 MG/1 ML Injection IV ONE (07:35)
[2025-03-25 08:27] VITALS: BP 124/67
[2025-03-25] MEDS ORDERED: Guaifenesin/Dextromethorphan Syrup 5 ML UDC PO PRN (11:20)
[2025-03-25 13:00] LABS: Vancomycin, Trough 12.3 ug/mL (5.0-10.0)
[2025-03-25 13:18] LABS: BASOPHILS ABSOLUTE AUTO 0.02 K/mm3 (0.00-0.23); BASOPHILS PERCENT AUTO 0 % (0-2); EOSINOPHILS ABSOLUTE AUTO 0.20 K/mm3 (0.00-0.68); EOSINOPHILS PERCENT AUTO 3 % (0-6); Hematocrit 28.7 % (33.0-51.0); Hemoglobin 9.2 g/dL (11.5-16.0); IMMATURE GRAN ABSOLUTE AUTO 0.05 K/mm3 (0.00-0.10); IMMATURE GRAN PERCENT AUTO 1 % (0-1); LYMPHOCYTES ABSOLUTE AUTO 1.15 K/mm3 (0.84-5.20); LYMPHOCYTES PERCENT AUTO 14 % (21-46); MONOCYTES ABSOLUTE AUTO 1.02 K/mm3 (0.16-1.47); MONOCYTES PERCENT AUTO 13 % (4-13); Mean Corpuscular HGB Conc 32.1 g/dL (31.5-36.5); Mean Corpuscular Volume 93 fL (80-100); NEUTROPHILS ABSOLUTE AUTO 5.54 K/mm3 (1.96-9.15); NEUTROPHILS PERCENT AUTO 69 % (41-73); NRBC ABSOLUTE 0.00 K/mm3 (0.00-0.02); NRBC Auto 0.0 /100 WBC (0.0-0.2); Platelet Count 317 K/mm3 (150-400); RDW Coefficient Variation 13.3 % (11.7-14.2); RDW Standard Deviation 45.1 fL (35.1-46.3)
[2025-03-25 14:02] LABS: Alanine Aminotransfer (ALT/SGP 64.0 U/L (12-78); Albumin, Blood 2.7 g/dL (3.4-5.0); Albumin/Globulin Ratio 0.7 (0.8-1.8); Anion Gap 6.0 mmol/L (3-11); Aspartate Aminotrans (AST/SGOT 95.0 U/L (12-37); Bilirubin, Total 0.5 mg/dL (0.1-1.0); Blood Urea Nitrogen 13.0 mg/dL (8-24); CO2, Blood 28.0 mmol/L (21-32); Calcium, Blood 8.6 mg/dL (8.5-10.1); Chloride, Blood 107.0 mmol/L (98-108); Creatinine, Blood 0.7 mg/dL (0.40-1.00); Globulin, Blood 3.8 g/dL (2.2-4.0); Glucose, Blood 111.0 mg/dL (70-99); Potassium, Blood 3.0 mmol/L (3.5-5.5); Sodium, Blood 138.0 mmol/L (136-145); Total Protein, Blood 6.5 g/dL (6.4-8.2)
[2025-03-25] MEDS ORDERED: Flonase 0.05% N16 GM (18:19)
[2025-03-25] MEDS ORDERED: Prozac20 MG PO (18:21)
--- NOTE | 2025-03-25 19:38 | NUR ---
NOTE PT ALERT. C/O OF RIGH SIDED PLEURTIC STYLE CHEST PAIN. CALLED DR RAO. ORDER FOR MORPHINE RECEIVED. EFFECTIVE. PLACED A KPAD WELL TO RIGHT CHEST WALL. OXYCODONE 10MG EFFECTIVE FOR BACK/HEAD AND CHEST WALL PAIN. PT EATING TACO NAIK CURRENTLY. WOUND VAC TO MID BACK INTACT. NO DRAINAGE. RUNNING AT 125MMHG. NO COUGH NOTED. PT DECLINED FLUTTER VALVE OR I/S AT THIS TIME. HABITROL PATCH PLACED PER PT REQUEST. PT UP AD LAILA WITH SBA. GAIT STEADY. BED LOW AND LOCKED. SLIPPY SOCKS ON. CALL LIGHT WITH IN REACH.
[2025-03-25 21:02] VITALS: BP 105/60
--- NOTE | 2025-03-26 03:43 | NUR ---
ADMITTING COUNSELOR SUMMARY PT A&OX4, VSS. ABLE TO COMMUNICATE NEEDS EFFECTIVELY. PT HAS BEEN ASLEEP ON AND OFF THIS SHIFT. CHEST RISE/RESPIRATIONS NOTED. WOUND VAC CONTINUES TO BE IN PLACE. DRESSING/SEAL CDI. NO DRAININAGE NOTED. CONTINUES TO RECEIVE ZOSYN Q6 AND VANCOMYCIN TID. OXYCODONE ADMIN 1X W/ NO EFFECT. PROVIDER J CARLOS CONTACTED BY AWAIS RN. ORDER FOR BACLOFEN RECEIVED. ADMIN 1X W/ MILD EFFECT. PT STATES NO FURTHER NEEDS AT THIS TIME. BED RAILS UP X 2, BED IN LOWEST POSITION, BED WHEELS LOCKED, PERSONAL BELONGINGS AND CALL LIGHT WITHIN REACH FOR SAFETY.
[2025-03-26 04:52] VITALS: BP 119/80
[2025-03-26] MEDS ORDERED: Piperacillin/Tazobactam Sod 3.375 GM in NS 100 ML IV SCH (06:00)
[2025-03-26 07:19] VITALS: BP 130/73
[2025-03-26 08:12] LABS: BASOPHILS ABSOLUTE AUTO 0.03 K/mm3 (0.00-0.23); BASOPHILS PERCENT AUTO 1 % (0-2); EOSINOPHILS ABSOLUTE AUTO 0.45 K/mm3 (0.00-0.68); EOSINOPHILS PERCENT AUTO 7 % (0-6); Hematocrit 28.7 % (33.0-51.0); Hemoglobin 9.3 g/dL (11.5-16.0); IMMATURE GRAN ABSOLUTE AUTO 0.03 K/mm3 (0.00-0.10); IMMATURE GRAN PERCENT AUTO 1 % (0-1); LYMPHOCYTES ABSOLUTE AUTO 1.15 K/mm3 (0.84-5.20); LYMPHOCYTES PERCENT AUTO 19 % (21-46); MONOCYTES ABSOLUTE AUTO 0.82 K/mm3 (0.16-1.47); MONOCYTES PERCENT AUTO 13 % (4-13); Mean Corpuscular HGB Conc 32.4 g/dL (31.5-36.5); Mean Corpuscular Volume 94 fL (80-100); NEUTROPHILS ABSOLUTE AUTO 3.74 K/mm3 (1.96-9.15); NEUTROPHILS PERCENT AUTO 60 % (41-73); NRBC ABSOLUTE 0.00 K/mm3 (0.00-0.02); NRBC Auto 0.0 /100 WBC (0.0-0.2); Platelet Count 347 K/mm3 (150-400); RDW Coefficient Variation 13.5 % (11.7-14.2); RDW Standard Deviation 46.6 fL (35.1-46.3)
[2025-03-26 08:26] LABS: Anion Gap 8.0 mmol/L (3-11); Blood Urea Nitrogen 13.0 mg/dL (8-24); CO2, Blood 23.0 mmol/L (21-32); Calcium, Blood 8.4 mg/dL (8.5-10.1); Chloride, Blood 115.0 mmol/L (98-108); Creatinine, Blood 0.81 mg/dL (0.40-1.00); Glucose, Blood 126.0 mg/dL (70-99); Potassium, Blood 3.4 mmol/L (3.5-5.5); Sodium, Blood 143.0 mmol/L (136-145)
[2025-03-26 15:28] VITALS: BP 126/90
--- NOTE | 2025-03-26 18:13 | NUR ---
PT ALERT AND ORIENTED, CALLS APPROPRIATELY FOR ASSISTANCE, CALL LIGHT IN REACH THIS SHIFT, BED IN LOWEST POSITION, BEDSIDE TABLE IN REACH WITH HOURLY ROUNDING. WOUND VAC DRESSING CHANGED BY CASING RUNNING MACHINE TENDER'S.ORAL PAIN MANAGEMENT WITH OXYCODONE PRN. PLAN FOR DC TOMMOROW FOR COMPLETIION OF THREE DAYS OF ANTIBIOTIC INFUSION.
[2025-03-26 19:54] VITALS: BP 137/81
[2025-03-27 02:32] VITALS: BP 115/76
--- NOTE | 2025-03-27 04:16 | NUR ---
FUEL CELL DESIGNER SUMMARY PT A&OX4, VSS. ABLE TO COMMUNICATE NEEDS EFFECTIVELY. PT HAS BEEN ASLEEP FOR MOST OF THE SHIFT. CHEST RISE/RESPIRATIONS NOTED. PT CONTINUING TO RECEIVE ZOSYN Q6. WOUND VAC ON LUMBAR SPINE CONTINUES TO BE IN PLACE W/ NO DRAINAGE. DRESSING/SEAL CDI. OXYCODONE ADMIN X 2 THIS SHIFT W/ GOOD EFFECT. BED RAILS UP X 2, BED IN LOWEST POSITION, BED WHEELS LOCKED, PERSONAL BELONGINGS AND CALL LIGHT WITHIN REACH FOR SAFETY.
[2025-03-27 07:15] VITALS: BP 119/72
[2025-03-27] MEDS ORDERED: Cholecalciferol 1000 Unit Tablet (=25MCG) PO SCH (09:00)
[2025-03-27] MEDS ORDERED: ACYC400 PO (12:46)
[2025-03-27] MEDS ORDERED: AMOCLA875 PO (12:48)
[2025-03-27] MEDS ORDERED: JUVEN PACKET1 EA10 PO (12:48)
[2025-03-27] MEDS ORDERED: ALBU90OI6 INH (12:48)
[2025-03-27] MEDS ORDERED: FATHER JOH10 MG/5 ML PO (12:52)
[2025-03-27] MEDS ORDERED: VISBIOME 112.51 EACH PO (12:53)
[2025-03-27] MEDS ORDERED: NICO21TP TOP (12:53)
[2025-03-27] MEDS ORDERED: POTA20LUD PO (12:54)
[2025-03-27 15:12] VITALS: BP 130/89
--- NOTE | 2025-03-27 16:48 | NUR ---
PT DISCHARGED HOME WITH VIA WC TO FRONT DOOR WITH TREE TRIMMER HELPER STAFF MEMBER. DC INSTRUCTIONS AND NEW MEDICATIONS REVIEWED WITH PATIENT AT BEDSIDE. REFERRAL TO HOME HEALTH FOR CONTINUATION OF WOUND VAC CARE AND TREATMENT. PRESCRIPTIONS FAXED TO [facility] FOR POWER GENERATION ENGINEER.
== END 2025-03-27 15:21 | disposition home health service (06) | DRG 193 ==
LOC: ER 22:33 → ICUE 03-24 00:02 → MEDS 03-24 00:02 → ICUE 03-24 00:52 → MEDS 03-24 15:56
PROVIDERS: Internal Medicine; Student in an Organized Health Care Education/Training Program; ADMIT Internal Medicine
DX: J18.9 Pneumonia, unspecified organism (principal); J96.01 Acute respiratory failure with hypoxia; I24.89 Other forms of acute ischemic heart disease; E87.1 Hypo-osmolality and hyponatremia; T82.524A Displacement of infusion catheter, initial encounter; G89.29 Other chronic pain; M54.59 Other low back pain; M79.7 Fibromyalgia; E03.9 Hypothyroidism, unspecified; M19.90 Unspecified osteoarthritis, unspecified site; F41.8 Other specified anxiety disorders; E87.6 Hypokalemia; B00.1 Herpesviral vesicular dermatitis; Z98.890 Other specified postprocedural states; Z88.6 Allergy status to analgesic agent; Z88.8 Allergy status to other drugs, medicaments and biological substances; Z88.5 Allergy status to narcotic agent; Z79.890 Hormone replacement therapy; Z79.899 Other long term (current) drug therapy; Z90.710 Acquired absence of both cervix and uterus; Z96.651 Presence of right artificial knee joint; Z87.891 Personal history of nicotine dependence; Y83.8 Other surgical procedures as the cause of abnormal reaction of the patient, or of later complication, without mention of misadventure at the time of the procedure
CPT/HCPCS: 36415; 71045; 80048; 80053; 80202; 81001; 82803; 83605; 83735; 83880; 84100; 84484; 85025; 85610; 87040; 87637; 93005; 93010; 93306; 94762; 96365; 96375; 99285-25; A9270; J2270; J2543; J3010; J3360; J3373; J7040; J7050; J7120

== ENCOUNTER 2025-04-12 03:22 | Day surgery (SDC) | payer BC, OTHER ==
[~2025-04-12 03:22] MED LIST changes: +ACYC400 PO; +BUPR150ER PO; +DEXTROAMPHETAMI10 M1 PO; +FAMO20 PO; +FATHER JOH10 MG/5 ML PO; +JUVEN PACKET1 EA10 PO; +LEVSOD100 PO; +Lidocaine HCl 4% Topical Soln 5 MLUDC ONE; +NICO21TP TOP; +POTA20LUD PO; +PREG150 PO; +Prozac20 MG PO; +VISBIOME 112.51 EACH PO
== END 2025-04-12 23:00 | disposition home or self-care (01) ==
LOC: WOUND 03:22
DX: T81.31XA Disruption of external operation (surgical) wound, not elsewhere classified, initial encounter (principal)
CPT/HCPCS: A9270

== ENCOUNTER 2025-04-23 00:17 | Day surgery (SDC) | payer BC, OTHER ==
[~2025-04-23 00:17] MED LIST changes: -Lidocaine HCl 4% Topical Soln 5 MLUDC ONE
[2025-04-23] MEDS ORDERED: Lidocaine HCl 4% Topical Soln 5 MLUDC ONE (10:07)
[2025-04-23] MEDS ORDERED: Miconazole Nitrate 2% 85 GM PWD ONE (10:37)
== END 2025-04-23 23:30 | disposition home or self-care (01) ==
LOC: WOUND 00:17
DX: S31.000A Unspecified open wound of lower back and pelvis without penetration into retroperitoneum, initial encounter (principal); T81.31XA Disruption of external operation (surgical) wound, not elsewhere classified, initial encounter; Y83.8 Other surgical procedures as the cause of abnormal reaction of the patient, or of later complication, without mention of misadventure at the time of the procedure
CPT/HCPCS: A9270

== ENCOUNTER 2025-04-30 00:27 | Day surgery (SDC) | payer BC, OTHER ==
[2025-04-30] MEDS ORDERED: Lidocaine HCl 4% Topical Soln 5 MLUDC ONE (14:57)
== END 2025-04-30 23:00 | disposition home or self-care (01) ==
LOC: WOUND 00:27
DX: T81.31XD Disruption of external operation (surgical) wound, not elsewhere classified, subsequent encounter (principal)
CPT/HCPCS: A6213; A9270; G0463